=== PATIENT | female | born 1955 | race Caucasian/White ===

== ENCOUNTER 2021-01-21 15:35 | Inpatient (IN) ==
[2021-01-21] MEDS ORDERED: Ondansetron 4 MG/2 ML VIAL IVP PRN (17:53)
[2021-01-21] MEDS ORDERED: Naloxone 0.4 MG/ML INJ IVP PRN (17:53)
[2021-01-21] MEDS ORDERED: Melatonin 3 MG TABLET PO PRN (17:53)
[2021-01-21] MEDS ORDERED: Acetaminophen 325 MG TABLET PO PRN (17:53)
[2021-01-21] MEDS ORDERED: 0.9 % Sodium Chloride 1,000 ML IVC SCH (18:00)
[2021-01-21 18:45] LABS: Basophils # 0.1 K/mcL (0.0-0.2); Basophils % 0.8 %; Eosinophils # 0.3 K/mcL (0.0-0.6); Eosinophils % 2.5 %; Hematocrit 29.4 % (35.3-44.9); Hemoglobin 8.8 g/dL (11.5-15.4); Immature Granulocytes % 0.5 % (0-4); Lymphocytes # 1.8 K/mcL (0.6-4.6); Lymphocytes % 17.4 %; Mean Corpuscular HGB Conc 29.9 g/dL (31.6-35.5); Mean Corpuscular Hemoglobin 28.3 pg (28.0-33.3); Mean Corpuscular Volume 94.5 fL (83.0-100.0); Mean Platelet Volume 11.5 fL (9.4-12.4); Monocytes # 0.7 K/mcL (0.0-1.3); Monocytes % 6.5 %; Neutrophils # 7.4 K/mcL (1.6-8.9); Platelet Count 177 K/mcL (140-400); Red Blood Count 3.11 M/mcL (3.82-4.97); Red Cell Distribution Width 14.9 % (11.5-14.5); Segmented Neutrophils % 72.3 %; White Blood Count 10.2 K/mcL (4.3-11.1)
[2021-01-21] MEDS ORDERED: SODIUM CHLORIDE/NAHCO3/KCL/PEG 4,000 ML SOLN.RECON PO ONE (18:59)
[2021-01-21 19:04] LABS: Magnesium 2.1 mg/dL (1.6-2.6); Phosphorous 3.4 mg/dL (2.7-4.5)
[2021-01-21] MEDS: Pantoprazole 40 MG VIAL IVP SCH (19:14)
[2021-01-21] MEDS: Ringers Solution, Lactated 1,000 ML IVC SCH (19:14)
[2021-01-21] MEDS: *HR* HYDROcodone/Acet 5/325 mg TABLET PO PRN (20:48)
[2021-01-21] MEDS ORDERED: Perflutren Lipid Microsphere 1.3 ML in 0.9 % Sodium Chloride 8.7 ML IVP PRN (21:39)
[2021-01-21] MEDS ORDERED: Nitroglycerin 0.4 MG TAB.SUBL SL PRN (21:55)
[2021-01-22 00:39] LABS: Hemoglobin 8.9 g/dL (11.5-15.4); Mean Corpuscular HGB Conc 31.8 g/dL (31.6-35.5); Mean Corpuscular Hemoglobin 28.5 pg (28.0-33.3); Mean Corpuscular Volume 89.7 fL (83.0-100.0); Platelet Count 200 K/mcL (140-400); Red Blood Count 3.12 M/mcL (3.82-4.97); Red Cell Distribution Width 15.2 % (11.5-14.5); White Blood Count 11.6 K/mcL (4.3-11.1)
[2021-01-22 00:47] LABS: INR 2.6; Prothrombin Time 29.3 Seconds (9.4-12.1)
[2021-01-22 01:01] LABS: Calcium 8.9 mg/dL (8.6-10.3); Phosphorous 2.7 mg/dL (2.7-4.5); Potassium 4.2 mEq/L (3.5-5.1)
[2021-01-22 01:14] LABS: Thyroid Stimulating Hormone 1.713 mcIU/mL (0.340-5.600)
[2021-01-22 01:23] LABS: Folate 9.8 ng/mL (3.0-16.0)
[2021-01-22] MEDS: *HR* HYDROcodone/Acet 5/325 mg TABLET PO PRN ×2 (02:30→19:18)
[2021-01-22] MEDS: Pantoprazole 40 MG VIAL IVP SCH ×2 (05:34→17:25)
[2021-01-22 06:25] LABS: Adenovirus Not Detected (Not Detect); Bordetella Pertussis Not Detected (Not Detect); Chlamydophila pneumoniae Not Detected (Not Detect); Coronavirus 229E Not Detected (Not Detect); Coronavirus HKU1 Not Detected (Not Detect); Coronavirus NL63 Not Detected (Not Detect); Coronavirus OC43 Not Detected (Not Detect); Human Metapneumovirus Not Detected (Not Detect); Human Rhinovirus/Enterovirus Not Detected (Not Detect); Influenza A Subtype 2009 H1 Not Detected (Not Detect); Influenza B Not Detected (Not Detect); Mycoplasma pneumoniae Not Detected (Not Detect); Parainfluenza Virus 1 Not Detected (Not Detect); Parainfluenza Virus 2 Not Detected (Not Detect); Parainfluenza Virus 3 Not Detected (Not Detect); Parainfluenza Virus 4 Not Detected (Not Detect); Respiratory Syncytial Virus Not Detected (Not Detect); SARS-CoV-2 Not Detected (Not Detect)
[2021-01-22] MEDS ORDERED: Lidocaine -MPF 2% 2 ML VIAL ONE (07:53)
[2021-01-22] MEDS ORDERED: *HR* Propofol 200 MG/20 ML VIAL IVP ONE (09:07)
[2021-01-22] MEDS ORDERED: *HR* EPINEPHrine 1 MG/10 ML SYRINGE INTRATRACH PRN (09:30)
[2021-01-22] MEDS: carvediloL 25 MG TABLET PO SCH ×2 (10:02→17:25)
[2021-01-22] MEDS: Isosorbide MONOnitrate (24 HR) 30 MG TAB.ER.24H PO SCH (10:05)
[2021-01-22] MEDS: Multivit/Ca/Min/Fe/FA 1 TAB TABLET PO SCH (10:05)
[2021-01-22] MEDS: Nicotine 21 MG PATCH.TD24 TD SCH (10:05)
[2021-01-22] MEDS: Ringers Solution, Lactated 1,000 ML IVC SCH (10:06)
[2021-01-22] MEDS ORDERED: *HR* Phytonadione 10 MG/ML AMPUL SQ ONE (12:51)
[2021-01-22 16:06] LABS: Hematocrit 23.8 % (35.3-44.9); Hemoglobin 7.5 g/dL (11.5-15.4)
[2021-01-22] MEDS: ALPRAZolam 1 MG TABLET PO PRN (20:44)
[2021-01-23] MEDS: *HR* HYDROcodone/Acet 5/325 mg TABLET PO PRN (01:39)
[2021-01-23 02:06] LABS: Basophils % 0.4 %; Eosinophils # 0.3 K/mcL (0.0-0.6); Hematocrit 23.3 % (35.3-44.9); Hemoglobin 7.2 g/dL (11.5-15.4); Immature Granulocytes % 0.4 % (0-4); Lymphocytes # 2.1 K/mcL (0.6-4.6); Lymphocytes % 23.1 %; Mean Corpuscular HGB Conc 30.9 g/dL (31.6-35.5); Mean Corpuscular Hemoglobin 28.6 pg (28.0-33.3); Mean Corpuscular Volume 92.5 fL (83.0-100.0); Mean Platelet Volume 11.7 fL (9.4-12.4); Monocytes # 0.6 K/mcL (0.0-1.3); Monocytes % 6.6 %; Platelet Count 182 K/mcL (140-400); Red Blood Count 2.52 M/mcL (3.82-4.97); Red Cell Distribution Width 15.6 % (11.5-14.5); Segmented Neutrophils % 66.5 %; White Blood Count 9.1 K/mcL (4.3-11.1)
[2021-01-23 02:29] LABS: Calcium 8.6 mg/dL (8.6-10.3); Magnesium 2.1 mg/dL (1.6-2.6); Phosphorous 2.4 mg/dL (2.7-4.5)
[2021-01-23] MEDS: Pantoprazole 40 MG VIAL IVP SCH (05:10)
[2021-01-23] MEDS ORDERED: 0.9 % Sodium Chloride 250 ML IVC SCH (07:45)
[2021-01-23] MEDS: Isosorbide MONOnitrate (24 HR) 30 MG TAB.ER.24H PO SCH (08:17)
[2021-01-23] MEDS: lisinopriL 20 MG TABLET PO SCH (08:17)
[2021-01-23] MEDS: Cholecalciferol (D-3) 1,000 UNIT (25MCG) TABLET PO SCH (08:17)
[2021-01-23] MEDS: Multivit/Ca/Min/Fe/FA 1 TAB TABLET PO SCH (08:17)
[2021-01-23] MEDS: carvediloL 25 MG TABLET PO SCH ×2 (08:17→18:31)
[2021-01-23] MEDS: Nicotine 21 MG PATCH.TD24 TD SCH (08:17)
[2021-01-23 08:31] LABS: INR 1.6; Prothrombin Time 17.8 Seconds (9.4-12.1)
[2021-01-23] MEDS: ALPRAZolam 1 MG TABLET PO PRN ×2 (11:09→21:29)
[2021-01-23 17:20] LABS: Hematocrit 25.3 % (35.3-44.9)
[2021-01-23 23:00] LABS: Hematocrit 22.5 % (35.3-44.9); Hemoglobin 7.1 g/dL (11.5-15.4)
[2021-01-24 05:30] LABS: Calcium 8.8 mg/dL (8.6-10.3); Magnesium 1.9 mg/dL (1.6-2.6)
[2021-01-24 07:43] LABS: Hematocrit 25.3 % (35.3-44.9); Hemoglobin 8.1 g/dL (11.5-15.4)
[2021-01-24] MEDS: Nicotine 21 MG PATCH.TD24 TD SCH (07:49)
[2021-01-24] MEDS: Multivit/Ca/Min/Fe/FA 1 TAB TABLET PO SCH (07:50)
[2021-01-24] MEDS: Isosorbide MONOnitrate (24 HR) 30 MG TAB.ER.24H PO SCH (07:50)
[2021-01-24] MEDS: Cholecalciferol (D-3) 1,000 UNIT (25MCG) TABLET PO SCH (07:50)
[2021-01-24] MEDS: lisinopriL 20 MG TABLET PO SCH (07:50)
[2021-01-24] MEDS: carvediloL 25 MG TABLET PO SCH (07:50)
[2021-01-24 10:29] VITALS: BP 149/71
== END 2021-01-24 13:30 | disposition home or self-care (01) | DRG 391 ==
LOC: 3ANU → SUATTDRO 17:23 → 3ANU 17:28
PROVIDERS: ADMIT Internal Medicine; ATTEND Internal Medicine

== ENCOUNTER 2021-01-25 22:09 | Inpatient (IN) ==
[2021-01-25 23:19] LABS: Mean Corpuscular Hemoglobin 29.6 pg (28.0-33.3); Nucleated Red Blood Cells 0.2 /100 WBC (0); Red Blood Count 1.96 M/mcL (3.82-4.97)
[2021-01-25 23:21] LABS: Basophils # 0.1 K/mcL (0.0-0.2); Basophils % 0.4 %; Eosinophils # 0.4 K/mcL (0.0-0.6); Eosinophils % 3.1 %; Hematocrit 18.7 % (35.3-44.9); Immature Granulocytes % 0.9 % (0-4); Lymphocytes # 1.4 K/mcL (0.6-4.6); Lymphocytes % 12.5 %; Mean Corpuscular Volume 95.4 fL (83.0-100.0); Mean Platelet Volume 11.5 fL (9.4-12.4); Monocytes # 0.8 K/mcL (0.0-1.3); Platelet Count 167 K/mcL (140-400); Segmented Neutrophils % 76.1 %; White Blood Count 11.5 K/mcL (4.3-11.1)
[2021-01-25 23:27] LABS: INR 1.1; Prothrombin Time 12.5 Seconds (9.4-12.1)
[2021-01-25 23:41] LABS: Alanine Aminotransferase 8 Units/L (7-52); Albumin 3.1 g/dL (3.5-5.7); Albumin/Globulin Ratio 1.5 (1.1-2.2); Alkaline Phosphatase 50 Units/L (34-104); Aspartate Amino Transferase 9 Units/L (13-39); BUN/Creatinine Ratio 34 (6-26); Bilirubin,Total 0.5 mg/dL (0.3-1.0); Blood Urea Nitrogen 49 mg/dL (8-23); Calcium 8.1 mg/dL (8.6-10.3); Carbon Dioxide 22 mEq/L (23-29); Chloride 113 mEq/L (98-107); Globulin 2.1 g/dL (2.4-3.5); Glucose 135 mg/dL (70-105); Osmolality,Calculated 309 (280-300); Potassium 4.1 mEq/L (3.5-5.1); Sodium 142 mEq/L (136-145); Total Protein 5.2 g/dL (6.4-8.9); Troponin I < 0.03 ng/mL (< 0.04); eGFR For African Americans 44 (> 60); eGFR For Non-African Americans 36 (> 60)
[2021-01-25] MEDS ORDERED: 0.9 % Sodium Chloride 1,000 ML IVC ONE (23:43)
[2021-01-25 23:51] LABS: Hemoglobin 5.8 g/dL (11.5-15.4); Neutrophils # 8.8 K/mcL (1.6-8.9)
[2021-01-25] MEDS ORDERED: Pantoprazole 40 MG VIAL IVP ONE (23:55)
[2021-01-26] MEDS ORDERED: Naloxone 0.4 MG/ML INJ IVP PRN (00:57)
[2021-01-26] MEDS ORDERED: Ondansetron 4 MG/2 ML VIAL IVP PRN (00:57)
[2021-01-26] MEDS: Pantoprazole 40 MG VIAL IVP SCH ×2 (06:04→17:00)
[2021-01-26 08:43] LABS: Basophils # 0.1 K/mcL (0.0-0.2); Basophils % 0.5 %; Eosinophils # 0.4 K/mcL (0.0-0.6); Eosinophils % 4.2 %; Hemoglobin 7.8 g/dL (11.5-15.4); Immature Granulocytes % 0.6 % (0-4); Lymphocytes # 1.3 K/mcL (0.6-4.6); Mean Corpuscular HGB Conc 32.5 g/dL (31.6-35.5); Mean Corpuscular Hemoglobin 30.1 pg (28.0-33.3); Mean Corpuscular Volume 92.7 fL (83.0-100.0); Mean Platelet Volume 11.4 fL (9.4-12.4); Monocytes # 0.7 K/mcL (0.0-1.3); Monocytes % 7.2 %; Neutrophils # 6.8 K/mcL (1.6-8.9); Platelet Count 178 K/mcL (140-400); Red Blood Count 2.59 M/mcL (3.82-4.97); Red Cell Distribution Width 15.9 % (11.5-14.5); Segmented Neutrophils % 73.5 %; White Blood Count 9.3 K/mcL (4.3-11.1)
[2021-01-26 09:02] LABS: Calcium 8.4 mg/dL (8.6-10.3); Potassium 4.1 mEq/L (3.5-5.1)
[2021-01-26] MEDS ORDERED: Lidocaine -MPF 2% 2 ML VIAL ONE (14:45)
[2021-01-26] MEDS: carvediloL 25 MG TABLET PO SCH (17:01)
[2021-01-26] MEDS: ALPRAZolam 1 MG TABLET PO SCH ×2 (17:01→20:47)
[2021-01-26] MEDS: Acetaminophen 325 MG TABLET PO PRN (20:47)
[2021-01-27] MEDS: Pantoprazole 40 MG VIAL IVP SCH ×2 (06:24→17:47)
[2021-01-27 07:03] LABS: Hematocrit 24.5 % (35.3-44.9); Hemoglobin 7.6 g/dL (11.5-15.4); Mean Corpuscular Hemoglobin 30.2 pg (28.0-33.3); Mean Corpuscular Volume 97.2 fL (83.0-100.0); Mean Platelet Volume 11.6 fL (9.4-12.4); Platelet Count 206 K/mcL (140-400); Red Blood Count 2.52 M/mcL (3.82-4.97); Red Cell Distribution Width 16.9 % (11.5-14.5); White Blood Count 7.2 K/mcL (4.3-11.1)
[2021-01-27 07:22] LABS: Calcium 8.6 mg/dL (8.6-10.3); Potassium 3.9 mEq/L (3.5-5.1)
[2021-01-27] MEDS: Isosorbide MONOnitrate (24 HR) 30 MG TAB.ER.24H PO SCH (08:45)
[2021-01-27] MEDS: carvediloL 25 MG TABLET PO SCH ×2 (08:46→17:46)
[2021-01-27] MEDS: ALPRAZolam 1 MG TABLET PO SCH ×3 (08:46→20:36)
[2021-01-28 02:27] LABS: Hematocrit 22.9 % (35.3-44.9); Mean Corpuscular HGB Conc 30.6 g/dL (31.6-35.5); Mean Corpuscular Hemoglobin 29.3 pg (28.0-33.3); Mean Corpuscular Volume 95.8 fL (83.0-100.0); Mean Platelet Volume 11.4 fL (9.4-12.4); Platelet Count 193 K/mcL (140-400); Red Blood Count 2.39 M/mcL (3.82-4.97); Red Cell Distribution Width 16.3 % (11.5-14.5); White Blood Count 7.1 K/mcL (4.3-11.1)
[2021-01-28 02:45] LABS: Calcium 8.3 mg/dL (8.6-10.3); Potassium 3.7 mEq/L (3.5-5.1)
[2021-01-28] MEDS: Pantoprazole 40 MG VIAL IVP SCH (05:13)
[2021-01-28] MEDS ORDERED: 0.9 % Sodium Chloride 250 ML IVC SCH (07:30)
[2021-01-28] MEDS: ALPRAZolam 1 MG TABLET PO SCH ×3 (08:05→21:13)
[2021-01-28] MEDS: carvediloL 25 MG TABLET PO SCH ×2 (08:05→16:51)
[2021-01-28] MEDS: Isosorbide MONOnitrate (24 HR) 30 MG TAB.ER.24H PO SCH (08:05)
[2021-01-28] MEDS: Acetaminophen 325 MG TABLET PO PRN (11:53)
[2021-01-29 04:16] LABS: Hemoglobin 7.7 g/dL (11.5-15.4); Mean Corpuscular HGB Conc 30.8 g/dL (31.6-35.5); Mean Corpuscular Hemoglobin 29.6 pg (28.0-33.3); Mean Corpuscular Volume 96.2 fL (83.0-100.0); Mean Platelet Volume 11.3 fL (9.4-12.4); Platelet Count 168 K/mcL (140-400); Red Cell Distribution Width 16.6 % (11.5-14.5); White Blood Count 7.1 K/mcL (4.3-11.1)
[2021-01-29 04:35] LABS: Calcium 8.4 mg/dL (8.6-10.3); Potassium 3.9 mEq/L (3.5-5.1)
[2021-01-29] MEDS: ALPRAZolam 1 MG TABLET PO SCH ×3 (08:35→23:44)
[2021-01-29] MEDS: Isosorbide MONOnitrate (24 HR) 30 MG TAB.ER.24H PO SCH (08:35)
[2021-01-29] MEDS: carvediloL 25 MG TABLET PO SCH ×2 (08:35→17:16)
[2021-01-29] MEDS ORDERED: Iron Sucrose Complex 400 MG in 0.9 % Sodium Chloride 250 ML IVPB ONE (09:37)
[2021-01-29] MEDS ORDERED: Cyanocobalamin (B-12) 1,000 MCG/ML VIAL SQ ONE (09:37)
[2021-01-29] MEDS ORDERED: 0.9 % Sodium Chloride 250 ML IVC SCH (09:45)
[2021-01-29] MEDS ORDERED: *HR* OxyCODONE Immed Rel 5 MG TABLET PO ONE (17:27)
[2021-01-29] MEDS: Acetaminophen 325 MG TABLET PO PRN (23:44)
[2021-01-30 02:55] LABS: Albumin 3.2 g/dL (3.5-5.7); Albumin/Globulin Ratio 1.6 (1.1-2.2); Bilirubin,Total 0.7 mg/dL (0.3-1.0); Calcium 8.3 mg/dL (8.6-10.3); Potassium 4.3 mEq/L (3.5-5.1); Total Protein 5.2 g/dL (6.4-8.9)
[2021-01-30] MEDS: carvediloL 25 MG TABLET PO SCH (09:59)
[2021-01-30] MEDS: Isosorbide MONOnitrate (24 HR) 30 MG TAB.ER.24H PO SCH (10:00)
[2021-01-30] MEDS: ALPRAZolam 1 MG TABLET PO SCH ×2 (10:00→15:31)
[2021-01-30 10:39] LABS: Hematocrit 29.9 % (35.3-44.9); Hemoglobin 9.2 g/dL (11.5-15.4); Mean Corpuscular HGB Conc 30.8 g/dL (31.6-35.5); Mean Corpuscular Hemoglobin 29.1 pg (28.0-33.3); Mean Corpuscular Volume 94.6 fL (83.0-100.0); Mean Platelet Volume 11.6 fL (9.4-12.4); Platelet Count 229 K/mcL (140-400); Red Blood Count 3.16 M/mcL (3.82-4.97); Red Cell Distribution Width 15.9 % (11.5-14.5); White Blood Count 6.4 K/mcL (4.3-11.1)
[2021-01-30] MEDS ORDERED: Iron Sucrose Complex 400 MG in 0.9 % Sodium Chloride 250 ML IVPB ONE (12:05)
[2021-01-30 15:01] VITALS: BP 114/54
== END 2021-01-30 17:51 | disposition home or self-care (01) | DRG 326 ==
LOC: EMEROOARM 22:09 → 3ANU 22:09 → SUATTDRO 01-26 00:25 → 3ANU 01-26 01:03
PROVIDERS: ADMIT Student in an Organized Health Care Education/Training Program; ATTEND Internal Medicine